=== PATIENT | male | born 1975 | race Hispanic/Latino ===

== ENCOUNTER → 2024-01-20 12:18 | Outpatient (REF) | payer OTHER, SELFPAY ==
[2024-01-20 13:02] LABS: % Basophils 0.7 % (0-2); % Eosinophils 12.2 % (0-6); % Immature Granulocytes 0.1 % (0-0.5); % Lymphocytes 34.1 % (20.5-51.1); % Monocytes 8.4 % (1.7-9.3); % Neutrophils 44.5 % (42.2-75.2); Absolute Basophils 0.1 10^3/uL (0-0.2); Absolute Eosinophils 0.8 10^3/uL (0-0.7); Absolute Lymphocytes 2.3 10^3/uL (1.2-3.4); Absolute Monocytes 0.6 10^3/uL (0.1-0.6); Absolute Neutrophils 3.1 10^3/uL (1.4-6.5); Hemoglobin 16.3 g/dL (13.0-18.0); Mean Corp Hgb Conc. 35.4 g/dL (33.0-37.0); Mean Corpuscular Hgb 30.3 pg (27.0-31.0); Mean Corpuscular Volume 85.5 fL (80.0-94.0); Mean Platelet Volume 10.2 fL (7.4-10.4); Nucleated Red Blood Cells % 0 % (-); Platelet Count 262 10^3/uL (130-400); Red Blood Cell Count 5.38 10^6/uL (4.70-6.10); White Blood Cell Count 6.9 10^3/uL (4.8-10.8)
[2024-01-20 13:43] LABS: ALT (SGPT) 35 U/L (0-50); AST (SGOT) 32 U/L (17-59); Albumin 4.9 g/dl (3.5-5.0); Alkaline Phosphatase 64 U/L (38-126); Blood Urea Nitrogen 19 mg/dl (9-20); Calcium 9.8 mg/dl (8.4-10.2); Carbon Dioxide 24 mmol/L (22-30); Chloride 103 mmol/L (98-107); Glucose 94 mg/dl (70-99); Potassium 4.3 mmol/L (3.5-5.1); Sodium 138 mmol/L (135-145); Total Protein 7.7 g/dl (6.3-8.2); eGFR > 60.00
[2024-01-20 13:50] LABS: IgA 307 mg/dl (70-400)
[2024-01-20 14:00] LABS: Glycohemoglobin (HgbA1c) 5.6 % (4.0-5.6)
[2024-01-20 14:16] LABS: TSH Reflex To Free T4 2.97 uIU/ml (0.47-4.68)
[2024-01-21 21:35] LABS: Endomysial IgA Antibody Titer <1:10 (<1:10)
== END ==
LOC: CLINIC 12:18
PROVIDERS: ATTENDING PHYSICIAN Internal Medicine
DX: K58.0 Irritable bowel syndrome with diarrhea (principal)
CPT/HCPCS: 36415; 80053; 82784; 83036; 83516; 84443; 85025; 86231

== ENCOUNTER → 2024-03-23 12:05 | Outpatient (REF) | payer OTHER, SELFPAY ==
[2024-03-23 13:45] LABS: % Basophils 0.6 % (0-2); % Eosinophils 5.6 % (0-6); % Immature Granulocytes 0.3 % (0-0.5); % Lymphocytes 39.9 % (20.5-51.1); % Monocytes 7.5 % (1.7-9.3); % Neutrophils 46.1 % (42.2-75.2); Absolute Basophils 0.1 10^3/uL (0-0.2); Absolute Eosinophils 0.4 10^3/uL (0-0.7); Absolute Lymphocytes 3.2 10^3/uL (1.2-3.4); Absolute Monocytes 0.6 10^3/uL (0.1-0.6); Absolute Neutrophils 3.6 10^3/uL (1.4-6.5); Hematocrit 46.1 % (39.0-52.0); Hemoglobin 15.9 g/dL (13.0-18.0); Mean Corp Hgb Conc. 34.5 g/dL (33.0-37.0); Mean Corpuscular Hgb 29.6 pg (27.0-31.0); Mean Corpuscular Volume 85.8 fL (80.0-94.0); Mean Platelet Volume 10.3 fL (7.4-10.4); Nucleated Red Blood Cells % 0 % (-); Platelet Count 310 10^3/uL (130-400); Red Blood Cell Count 5.37 10^6/uL (4.70-6.10); White Blood Cell Count 7.9 10^3/uL (4.8-10.8)
[2024-03-23 14:00] LABS: Erythrocyte Sed Rate 8 mm/hour (0-20)
== END ==
LOC: REG 12:05
PROVIDERS: ATTENDING PHYSICIAN Internal Medicine
DX: K58.0 Irritable bowel syndrome with diarrhea (principal)
CPT/HCPCS: 36415; 85025; 85652

== ENCOUNTER → 2024-03-28 08:09 | Outpatient (REF) | payer OTHER, SELFPAY | LOC: REG 08:09 | PROVIDERS: ATTENDING PHYSICIAN Internal Medicine | DX: K58.0 Irritable bowel syndrome with diarrhea (principal) | CPT/HCPCS: 36415; 87328; 87329 ==

== ENCOUNTER → 2024-04-18 08:53 | Outpatient (REF) | payer OTHER, SELFPAY | LOC: RAD 08:53 | PROVIDERS: ATTENDING PHYSICIAN Internal Medicine | DX: K58.0 Irritable bowel syndrome with diarrhea (principal) | CPT/HCPCS: 74246; 74248 ==

== ENCOUNTER 2025-04-07 23:01 | Emergency (ER) | payer OTHER, SELFPAY ==
[2025-04-07 23:14] VITALS: BP 128/89
[2025-04-08] VITALS (7 sets, daily range): BP systolic 110–131; BP diastolic 78–91; BMI 27.3
[2025-04-08] MEDS: ADACEL 0.5 ML IM (01:29)
--- NOTE | 2025-04-08 06:15 | ED.GENMED ---
History of Present Illness
General
Chief Complaint: Fainting/Passed Out
Source: patient
Exam Limitations: none
Time Seen by Provider: 04/08/25 01:05
Nursing documentation reviewed up to this point in time: agreed with
History of Present Illness
History of Present Illness:
Pleasant 50-year-old male presents to the emergency department after syncopal episode. 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 He broke a glass and cut his finger between his left index and ring fingers. Patient saw blood and passed out.
He denies head injury. No loss of conscious after the initial event. He was incontinent of urine initially. HPI performed with the help of language line dust sampler.
Past History
Past History
ED Past Medical History: None; Negative Asthma, HTN, Hypercholesterolemia or NIDDM
ED Past Surgical History: None
Social History
Tobacco: Former smoker
Alcohol: Former
Personal:
Living: with family
Employment: Employed
Review of Systems
Review of Systems
Allergies reviewed?: Yes
All Other Systems: ROS reviewed and negative except as documented in HPI and ROS
Constitutional: Reports no symptoms
EENT: Reports no symptoms
Respiratory: Reports no symptoms
Cardiac: Reports no symptoms
ABD/GI: Reports nausea
: Reports no symptoms
Musculoskeletal: Reports no symptoms
Skin: Reports no symptoms
Neurological: Denies headache or weakness
Endocrine: Reports no symptoms
Hematologic/Lymphatic: Reports no symptoms
Psychiatric: Reports anxiety
Phy Exam
General Physical Exam
General Presentation: well appearing and no apparent distress
General Skin: warm and dry
General Habitus: normal
General Mental: alert
General Hydration: appears well hydrated
ENT Exam
ENT Exam: EOMI, pharynx normal, neck supple and normocephalic
Eye Exam
Eye Exam: PERRL, cornea clear and conjunctiva normal
Cardiovascular Exam
Cardiovascular Exam: regular rate/rhythm, no edema, no murmur and normal peripheral pulses
Pulmonary Exam
Pulmonary Exam: lungs clear, no respiratory distress, no rales, no crackles, no rhonchi, no stridor, no wheezing and no cough
Gastrointestinal Exam
Gastrointestinal Exam: normal bowel sounds, non tender, soft, no organomegaly, no pulsatile mass and non distended
Neurological Exam
Neurological Exam: alert, oriented x3, no motor deficits and speech normal
Musculoskeletal Exam
Musculoskeletal Exam: full ROM and no edema
Skin Exam
Skin Exam: normal color, warm/dry, no rash and no petechia
Psychiatric Exam
Psychiatric Exam: normal mood/affect
Course
Orders/Labs/Results
Orders:
Orders
04/07/25 23:06
EKG [Electrocardiogram (*1)] Urgent
Reason for Study: Syncope
EKG- Treatment ONCE
04/08/25 01:27
Tetanus/Diphth/Acelpertussis [Adacel] 0.5 ml IM .ONCE ONE
04/08/25 01:39
Hand, Left 3 View [CR Hand - Left Min 3 Views] Urgent
Comment:
Reason For Exam: possible fb
Vital Signs
Initial and Last Documented VS:
Initial Vital Signs
Temp Pulse Resp BP Pulse Ox
97.5 F 83 16 128/89 100
04/07/25 23:14 04/07/25 23:14 04/07/25 23:14 04/07/25 23:14 04/07/25 23:14
Last Documented Vital Signs
Temp Pulse Resp BP Pulse Ox
97.5 F 68 16 119/89 96
04/07/25 23:14 04/08/25 05:49 04/08/25 05:49 04/08/25 05:00 04/08/25 05:00
Procedures
Laceration Closure
Left Hand:
Status of Wound: dirty
Size of Wound in cm: 4
Description of Wound Edges: sharp
Preparation: cleaned with soap & water
Anesthesia: 1% Lidocaine
Wound exploration: extensive cleaning of contaminated wound and explored to base- no FB
Type of Closure: single layer closure
Skin Closure Material: 5-0 nylon
Number of sutures: 8
*Radiology
Radiology exam reviewed: all reviewed NAD by ED Provider
*Pulse Oximetry
Patient hypoxic: no (96% on room air)
*Critical Care Note
Total Time (30-74mins, 75-104mins- exclusive of procedures): Not Applicable
Update Note
Update Note:
Wound was cleaned and soaked multiple times throughout the the ER stay. 9 simple interrupted sutures were placed. Patient was placed in a splint. Urged to follow-up with orthopedic surgery. This was done through the translation services.
ED Attending Note
-
Portions of this chart may have been created with voice recognition software.� Occasional wrong word or��sound alike� substitutions may have occurred due to the inherent limitations of voice recognition software.
Discharge Plan
Departure
Patient Disposition: Home (Routine Discharge)
Date of Disposition: 04/08/25
Time of Disposition: 06:15
Patient with high blood pressure during this ER visit?: No
Condition: Good
Discharge Problem:
Finger laceration
Prescriptions:
No Action
hydrocortisone acetate [Anucort-HC] 25 mg suppository
25 mg [place] BID Qty: 12 0RF
Referrals:
UNKNOWN - PT DOES,NOT KNOW [Family Provider]
Interventions
Interventions:
*Risk Screen - Suicide Last Done: 04/07/25 23:14
*General Assessment Last Done: 04/07/25 23:14
*Neglect/Abuse Screening Last Done: 04/07/25 23:14
*ED- Fall Risk Assessment Last Done: 04/08/25 01:12
*ED COVID-19 Vaccine History Last Done: 04/08/25 01:12
ED- Cardiac Assessment Last Done: 04/08/25 01:36
ED- Neurological Assessment Last Done: 04/08/25 01:36
ED-Skin Assessment Last Done: 04/08/25 01:36
Discharge Date and Time
Print Language: SAMI
== END 2025-04-08 06:59 | disposition home or self-care (01) ==
LOC: EMR 23:01
PROVIDERS: EMERGENCY PHYSICIAN Student in an Organized Health Care Education/Training Program
DX: R55 Syncope and collapse (principal); S61.422A Laceration with foreign body of left hand, initial encounter; R11.0 Nausea; W25.XXXA Contact with sharp glass, initial encounter; Z23 Encounter for immunization; F41.9 Anxiety disorder, unspecified; Z87.891 Personal history of nicotine dependence
CPT/HCPCS: 99284; 12042; 90471; 73130; 90715; 93005

== ENCOUNTER 2025-04-14 10:49 | Emergency (ER) | payer OTHER, SELFPAY ==
[2025-04-14 10:52] VITALS: BP 136/96
--- NOTE | 2025-04-14 11:07 | ED.GENMED ---
History of Present Illness
General
Chief Complaint: Wound Check/Suture Removal
Source: patient and records
Time Seen by Provider: 04/14/25 11:03
History of Present Illness
History of Present Illness:
50-year-old male presenting to the ER for evaluation for possible suture removal from left index finger after sustaining a laceration 6 days ago. Patient has no other symptoms or concerns at this time. Denies any signs of infection
Past History
Past History
ED Past Medical History: None; Negative Asthma, HTN, Hypercholesterolemia or NIDDM
ED Past Surgical History: None
Social History
Tobacco: Former smoker
Alcohol: Former
Drug: None
Personal:
Living: with family
Employment: Employed
Review of Systems
Review of Systems
All Other Systems: ROS reviewed and negative except as documented in HPI and ROS
Phy Exam
Physical Exam
Physical Exam:
GENERAL: Alert , in no apparent distress
EYE: conjunctiva clear
Head: Normocephalic atraumatic
NECK: Supple,
ENT: mmm.
LUNGS: no acute respiratory distress
NEUROLOGICAL: Alert and oriented
SKIN: Warm and dry, [address], skin edges still remain only loosely approximated, no surrounding erythema, edema and no purulent drainage
MUSCULOSKELETAL: well perfused.
PSYCH: Normal and appropriate interaction.
Scores
Heart Failure Risk
Heart Failure Risk Score: Not Applicable
Heart Score for Chest Pain Patients
STEMI patient?: Not applicable
Withdrawal Assessment of Alcohol
Withdrawal Assessment Completed?: Not applicable
Course
Vital Signs
Initial and Last Documented VS:
Initial Vital Signs
Temp Pulse Resp BP Pulse Ox
97.8 F 100 18 136/96 99
04/14/25 10:52 04/14/25 10:52 04/14/25 10:52 04/14/25 10:52 04/14/25 10:52
Last Documented Vital Signs
Temp Pulse Resp BP Pulse Ox
97.8 F 100 18 136/96 99
04/14/25 10:52 04/14/25 10:52 04/14/25 10:52 04/14/25 10:52 04/14/25 10:52
MDM/Problems Addressed
Differential Diagnosis Includes:
Continued healing of simple laceration, no symptoms to suggest infection, no fracture identified on x-ray on initial visit
MDM/Problems Addressed:
50-year-old male presenting the ER for possible suture removal. Wound is still healing and is not fully approximated. Patient has only had the sutures in place for 6 days. Advised he will need at least another 5 days for the wound to continue
healing. It does appear that a couple of the sutures had fallen out after they were placed 6 days ago. Splint is no longer in place that was provided. Advised patient on continued wound cleaning. Stable for discharge and will present back to the
ER in another few days for suture removal
*Pulse Oximetry
Patient hypoxic: no
*Critical Care Note
Total Time (30-74mins, 75-104mins- exclusive of procedures): Not Applicable
Data Reviewed
Review of Other/Old Records Reveals: Records
ED Attending Note
-
Portions of this chart may have been created with voice recognition software.� Occasional wrong word or��sound alike� substitutions may have occurred due to the inherent limitations of voice recognition software.
Discharge Plan
Departure
Patient Disposition: Home (Routine Discharge)
Date of Disposition: 04/14/25
Time of Disposition: 11:07
Patient with high blood pressure during this ER visit?: Yes
Discharge Problem:
Encounter for re-check of laceration wound
Instructions: Stitches Removal
Prescriptions:
No Action
hydrocortisone acetate [Anucort-HC] 25 mg suppository
25 mg [place] BID Qty: 12 0RF
amoxicillin-pot clavulanate 875-125 mg tablet
1 tab PO BID Qty: 20 0RF
Activity Restrictions/Additional Instructions:
Return in 5 days for suture removal
Interventions
Interventions:
*Risk Screen - Suicide Last Done: 04/14/25 11:23
*General Assessment Last Done: 04/14/25 11:23
*Neglect/Abuse Screening Last Done: 04/14/25 11:23
*ED- Fall Risk Assessment Last Done: 04/14/25 11:23
*ED COVID-19 Vaccine History Last Done: 04/14/25 11:23
*Nursing Disposition Last Done: 04/14/25 11:23
ED-Skin Assessment Last Done: 04/14/25 11:22
Discharge Date and Time
Discharge Date/Time: 04/14/25 11:16
Print Language: ALBANIAN
== END 2025-04-14 11:16 | disposition home or self-care (01) ==
LOC: EMR 10:49
PROVIDERS: EMERGENCY PHYSICIAN Emergency Medicine
DX: Z48.01 Encounter for change or removal of surgical wound dressing (principal); R03.0 Elevated blood-pressure reading, without diagnosis of hypertension; Z87.891 Personal history of nicotine dependence
CPT/HCPCS: 99282

== ENCOUNTER 2025-04-19 08:50 | Emergency (ER) | payer OTHER, SELFPAY ==
[2025-04-19 08:55] VITALS: BP 154/109
--- NOTE | 2025-04-19 09:22 | ED.GENMED ---
History of Present Illness
General
Chief Complaint: Wound Check/Suture Removal
Source: patient
Exam Limitations: none
Time Seen by Provider: 04/19/25 09:09
History of Present Illness
History of Present Illness:
Note:
CHIEF COMPLAINT(S)
Wound with stitches requiring removal and numbness in the affected area.
HISTORY OF PRESENT ILLNESS
The patient is a 50-year-old male presenting for removal of stitches placed 11 days ago on his hand due to an injury sustained in the workplace. The patient reports feeling persistent numbness in the area around the stitches, although there is some
sensation at the fingertip. No fever has been reported. He is able to bend his fingers. The patient has been off work since the injury and is seeking medical clearance to return.
ADDITIONAL HISTORY OBTAINED FROM SOURCES OTHER THAN THE PATIENT
there is a need for documentation regarding work restrictions to be communicated to the employer for the process of returning to work.
[employer] AFFECTING HE[employer]
The patient�s injury occurred at work, and he is involved in discussions regarding workman�s compensation and returning to his job duties.
REVIEW OF SYSTEMS
- Constitutional: No fever.
- Neurological: Numbness around the wound site.
- Musculoskeletal: Able to bend fingers.
PHYSICAL EXAM
- Nursing notes reviewed and vital signs reviewed.
- Musculoskeletal: The wound displays partial separation, and three stitches in place, ready for removal. No signs of acute infection. Full range of motion left index finger
PLAN
The stitches were removed. Instructions given for the continued healing of the wound, including using either ibuprofen or acetaminophen for pain management as needed. The patient was advised that numbness should improve over time as healing
progresses. Documentation for work clearance was provided as requested.
DIFFERENTIAL DIAGNOSIS
The Differential Diagnosis includes, in no particular order and is not limited to:
- Wound dehiscence
- Suture removal
Past History
Past History
ED Past Medical History: None; Negative Asthma, HTN, Hypercholesterolemia or NIDDM
ED Past Surgical History: None
Social History
Tobacco: Former smoker
Alcohol: Former
Drug: None
Personal:
Living: with family
Employment: Employed
Phy Exam
Physical Exam
Physical Exam:
See above
Course
Vital Signs
Initial and Last Documented VS:
Initial Vital Signs
Temp Pulse Resp BP Pulse Ox
98.2 F 96 20 154/109 100
04/19/25 08:55 04/19/25 08:55 04/19/25 08:55 04/19/25 08:55 04/19/25 08:55
Last Documented Vital Signs
Temp Pulse Resp BP Pulse Ox
98.2 F 96 20 154/109 100
04/19/25 08:55 04/19/25 08:55 04/19/25 08:55 04/19/25 08:55 04/19/25 08:55
*Pulse Oximetry
SaO2: 100
Oxygen Mode of Delivery: Room air
*Critical Care Note
Total Time (30-74mins, 75-104mins- exclusive of procedures): Not Applicable
ED Attending Note
-
Portions of this chart may have been created with voice recognition software.� Occasional wrong word or��sound alike� substitutions may have occurred due to the inherent limitations of voice recognition software.
Discharge Plan
Departure
Patient Disposition: Home (Routine Discharge)
Date of Disposition: 04/19/25
Time of Disposition: 09:24
Patient with high blood pressure during this ER visit?: No
Discharge Problem:
Visit for suture removal
Instructions: Wound Care (DC)
Prescriptions:
No Action
hydrocortisone acetate [Anucort-HC] 25 mg suppository
25 mg [place] BID Qty: 12 0RF
amoxicillin-pot clavulanate 875-125 mg tablet
1 tab PO BID Qty: 20 0RF
Activity Restrictions/Additional Instructions:
Keep clean. The wound will continue to heal but you are cleared to go back to work. Return if needed.
Mant�ngase limpio. La herida seguir� cicatrizando, betito puede volver al trabajo. Regrese si es necesario.
Interventions
Interventions:
*Risk Screen - Suicide Last Done: 04/19/25 08:55
Discharge Date and Time
Print Language: GREEK
== END 2025-04-19 09:30 | disposition home or self-care (01) ==
LOC: EMR 08:50
PROVIDERS: EMERGENCY PHYSICIAN Emergency Medicine
DX: S61.419D Laceration without foreign body of unspecified hand, subsequent encounter (principal); X58.XXXD Exposure to other specified factors, subsequent encounter; Z87.891 Personal history of nicotine dependence
CPT/HCPCS: 99281